=== PATIENT | female | born 1990 | race Caucasian/White ===

== ENCOUNTER 2017-11-10 07:31 | Inpatient (IN) | payer BC ==
[2017-11-10] VITALS (40 sets, daily range): BP systolic 112–161; BP diastolic 53–90; PULSE 55–108; TEMP 97.5–99
[~2017-11-10] VITALS: Ht 175.3 cm; Wt 91.8 kg
[2017-11-10] MEDS ORDERED: PRENATAL (08:03)
[2017-11-10 08:53] LABS: BASO % 0.2 % (0.0-2.0); EOS % 0.3 % (0-4.0); GRAN # 10.2 (1.4-6.5); LYMPH # 1.5 (1.2-3.4); LYMPH % 11.4 % (20.0-51.0); MEAN CELL VOLUME 86 fl (80.0-100.0); MEAN CORPUSCULAR HGB CONC 33 g/dl (33.0-37.0); MONO % 7.6 % (1.7-9.3); PLATELET COUNT 267 K/mm3 (130-400); RED BLOOD COUNT 4.01 M/mm3 (4.10-5.30); REDCELL DISTRIBUTION WIDTH-CV 12.6 % (11.5-14.5)
[2017-11-10 08:55] LABS: HEMATOCRIT 34.4 % (37.0-47.0); HEMOGLOBIN 11.5 g/dl (12.5-16.0); MEAN CORPUSCULAR HEMOGLOBIN 29 pg (27.0-31.0)
[2017-11-10 09:00] LABS: ALBUMIN 3.8 gm/dL (3.5-5.0); BILIRUBIN,TOTAL 0.2 mg/dL (0.0-1.0); CALCIUM 9.3 mg/dL (8.4-10.2); CREATININE, serum 0.62 mg/dL (0.52-1.25); TOTAL PROTEIN 6.9 gm/dL (6.4-8.2)
[2017-11-11] VITALS (7 sets, daily range): BP systolic 112–133; BP diastolic 56–84; PULSE 72–86; TEMP 97.8–98.2
[2017-11-11 06:21] LABS: HEMATOCRIT 27.5 % (37.0-47.0); HEMOGLOBIN 9.1 g/dl (12.5-16.0)
[2017-11-11] MEDS ORDERED: MOTRIN 800800 MG/TAB PO (12:47)
[2017-11-11] MEDS ORDERED: NEWMANS TOP (12:47)
[2017-11-11] MEDS ORDERED: PERCOCET 325 MG1 TA2 PO (12:47)
[2017-11-12 08:45] VITALS: BP 133/65; PULSE 78; TEMP 98
== END 2017-11-12 16:15 | disposition home or self-care (01) | DRG 775 ==
LOC: EDSTATUS 07:31 → LDRO 07:31 → OB 07:57 → LDR 07:57 → OB 11-11 02:45
PROVIDERS: Obstetrics & Gynecology
PROC: 10E0XZZ Delivery of Products of Conception, External Approach (ICD-10-PCS; principal; 2017-11-10)
PROC: 0KQM0ZZ Repair Perineum Muscle, Open Approach (ICD-10-PCS; 2017-11-10)
PROC: 10E0XZZ Delivery of Products of Conception, External Approach (ICD-10-PCS; 2017-11-10)
DX: O13.4 Gestational [pregnancy-induced] hypertension without significant proteinuria, complicating childbirth (principal); O99.824 Streptococcus B carrier state complicating childbirth; O70.1 Second degree perineal laceration during delivery; Z3A.39 39 weeks gestation of pregnancy; Z37.0 Single live birth
CPT/HCPCS: J2400; J2540; J2590; J2795; J7120

== ENCOUNTER 2019-06-04 07:01 | Inpatient (IN) | payer OTHER ==
[2019-06-04] VITALS (24 sets, daily range): BP systolic 114–152; BP diastolic 58–97; PULSE 59–104; TEMP 97.6–98.5
[~2019-06-04] VITALS: Ht 175.3 cm; Wt 94.5 kg
[~2019-06-04 07:01] MED LIST: MOTRIN 800800 MG/TAB PO; NEWMANS TOP; PERCOCET 325 MG1 TA2 PO; PRENATAL
--- NOTE | 2019-06-04 07:30 | NUR ---
0705- Pt arrives on unit ambulatory for scheduled induction. Pt and oriented to room. Pt into bathroom, changes into gown, voids. 0715- Pt into bed, EFM and TOCO on and tracing. Assessment completed. IV started, ABX infusing. Consents explained and signed. Call light within reach.
--- NOTE | 2019-06-04 08:14 | NUR ---
0747- Pt sitting up in bed to sign consent forms. FHR not tracing well due to maternal position. 0806- Couple updated that Dr Nguyen planning on evaluating in about 30mins. Pt desires to move around room till then. EFM adjusted and tracing well. Informed Pt, need for reactive strip prior to coming off monitor. Pt verbalizes understanding. 0814- Category I FHR tracing noted. EFM and TOCO off. Pt up to bathroom.
[2019-06-04 08:22] LABS: BASO % 0.2 % (0.0-2.0); EOS % 0.4 % (0-4.0); GRAN # 6.9 (1.4-6.5); GRAN % 72.6 % (42.2-75.2); HEMOGLOBIN 11.6 g/dl (12.5-16.0); LYMPH # 1.7 (1.2-3.4); LYMPH % 18.2 % (20.0-51.0); MEAN CELL VOLUME 84 fl (80.0-100.0); MEAN CORPUSCULAR HEMOGLOBIN 28 pg (27.0-31.0); MEAN CORPUSCULAR HGB CONC 33 g/dl (33.0-37.0); MONO # 0.8 (0.1-0.6); MONO % 8.2 % (1.7-9.3); PLATELET COUNT 256 K/mm3 (130-400); RED BLOOD COUNT 4.11 M/mm3 (4.10-5.30); REDCELL DISTRIBUTION WIDTH-CV 12.8 % (11.5-14.5)
[2019-06-04 08:24] LABS: HEMATOCRIT 34.7 % (37.0-47.0)
--- NOTE | 2019-06-04 09:18 | NUR ---
0851- Dr Nguyen at bedside, discusses plan of care for induction. Questions answered. 0855- SVE /-2, AROM, clear fluid, odorless. okay with not starting Pitocin now, will continue to evaluate. Pt aggrees and happy with plan. Pt updated with need to evaluate FHR now that water broke. Once Category I tracing established, Pt would like intermittent monitoring in order to move around room, use birthing ball, ect. 0818- Category I tracing noted. VSS. EFM and TOCO off, Pt up to void. Pt onto birthing ball. Discuss need to evaluate FHR every 40mins for 20mins, Pt verbalizes understanding.
--- NOTE | 2019-06-04 10:20 | NUR ---
0958- Pt into bed, EFM and TOCO on and tracing. Pt states feeling cramping but tolerating well. 1020- Category I FHR tracing noted. EFM and TOCO off. Pt desires to ambulate.
--- NOTE | 2019-06-04 11:21 | NUR ---
1028- Pt on BB, EFM and TOCO on, tracing intermittently, adjusted by this RN. Pt states contractions are getting stronger. 1121- EFM and TOCO off. Pt up to ambulate in hallway.
--- NOTE | 2019-06-04 12:00 | NUR ---
1142- Pt into bed, EFM and TOCO on and tracing. IVF and Pen G infusing per order. Discussed contraction pattern and options with couple. Pt wishes to continue with watching for now.
--- NOTE | 2019-06-04 13:00 | NUR ---
1230- SVE by this RN per Pt request, 2. Discussed Pitocin and precautions associated with it. Questions answered. Pt ready to start Pitocin.
--- NOTE | 2019-06-04 15:45 | NUR ---
1537- FHR intermittent, RN at bedside. Pt kneeling on bed, leaning over head-of-bed which was in semi-fowlers position. Pt breathing well and coping with contractions but very uncomfortable. This RN remains at bedside attempting to trace FH tones.
--- NOTE | 2019-06-04 16:10 | NUR ---
1600- Pt very uncomfortable, frequent position changes between contractions. Pt coping well with UCs. This RN remains at bedside, coaching with breathing and relaxation. 1604- SVE 9/100/+1. Pt feeling pushy. This RN calls charge nurse for assist. 1606- Dr Nguyen at bedside. Erickson, nursery RN at bedside. Pt and room prepped for delivery. Pt encouraged to push with UCs. 1611- of viable male infant. Baby to mother's abd where dried and stimulated, tended to by nursery RN. Pitocin off. 1616- Spontaneous delivery of placenta. Pitocin on at 333ml/hr. Bilateral labia lacerations repaired by , Lidocaine used. Pt tolerated well. Pericare completed. Ice pack to perineum. Pt assisted to high-fowlers, baby [id number] with mom.
--- NOTE | 2019-06-04 18:00 | NUR ---
1800- Pt ambulates to bathroom independently with RN stand-by assist. Voids 100mls. Pericare completed and explained. Peripad and underwear on. Clean gown on. Pt ambulates to PP room well. Oriented to room. Call light within reach. taken to nursery for bath per parents request.
[2019-06-05 00:30] VITALS: BP 118/66; PULSE 75; TEMP 98.5
[2019-06-05 04:30] VITALS: BP 130/78; PULSE 73; TEMP 97.8
[2019-06-05 08:30] VITALS: BP 120/66; PULSE 76; TEMP 97.8
--- NOTE | 2019-06-05 11:24 | NUR ---
Initial visit; Mom thanked for offering congratulations for the of her son. thanked Mom for choosing [facility].
[2019-06-05] MEDS ORDERED: IBU600 MG PO (14:07)
[2019-06-05] MEDS ORDERED: PERCOCET 325 MG1 TA2 PO (14:07)
[2019-06-05 15:37] VITALS: BP 112/68; PULSE 76; TEMP 97.8
== END 2019-06-05 17:23 | disposition home or self-care (01) | DRG 807 ==
LOC: LDR 07:01 → OB 07:01 → LDR 14:41 → OB 06-05 05:36
PROVIDERS: ADMIT Obstetrics & Gynecology
PROC: 10907ZC Drainage of Amniotic Fluid, Therapeutic from Products of Conception, Via Natural or Artificial Opening (ICD-10-PCS; principal; 2019-06-04)
PROC: 10E0XZZ Delivery of Products of Conception, External Approach (ICD-10-PCS; 2019-06-04)
PROC: 0HQ9XZZ Repair Perineum Skin, External Approach (ICD-10-PCS; 2019-06-04)
DX: O48.0 Post-term pregnancy (principal); Z37.0 Single live birth; Z3A.40 40 weeks gestation of pregnancy; O99.824 Streptococcus B carrier state complicating childbirth; O70.0 First degree perineal laceration during delivery
CPT/HCPCS: J2540; J2590; J7120

== ENCOUNTER → 2020-01-28 | Outpatient (CLI) | payer OTHER ==
[~2020-01-28] MED LIST changes: +IBU600 MG PO
== END ==
LOC: COL.RAD 13:30
DX: G43.909 Migraine, unspecified, not intractable, without status migrainosus (principal)

== ENCOUNTER 2022-04-19 05:00 | Inpatient (IN) | payer BC ==
[~2022-04-19] VITALS: Ht 175.3 cm; Wt 95.5 kg
[2022-04-19] VITALS (13 sets, daily range): BP systolic 115–141; BP diastolic 61–93; PULSE 56–78; TEMP 98–98.1
--- NOTE | 2022-04-19 05:30 | NUR ---
PATIENT PRESENTS TO OBT FOR LABOR ASSESSMENT. VSS. FHT REACTIVE AND REASSURING WITH REGULAR PAINFUL CONTRACTIONS THAT PALPATE FIRM. PATIENT DENIES LOF, DFM, AND VB. SVE PERFORMED; . DR. AC NOTIFIED AND ORDERS RECEIVED TO ADMIT PATIENT. CONSENT FORMS SIGNED AND MEDICAL HX OBTAINED. ASSESSMENT COMPLETED AND WNL. IV PLACED, LAB WORK SENT, AND IVF INITIATED. PCN STARTED FOR GBS PROPHALXIS. LABOR PLAN DISCUSSED WITH PATIENT AND VERBALIZED UNDERSTOOD. PATIENT AND SPOUSE ORIENTED TO ROOM AND UNIT. WILL CONTINUE TO MONITOR AND UPDATE PROVIDER.
[2022-04-19 06:24] LABS: BASO % 0.2 % (0.0-2.0); EOS # 0.1 K/mm3 (0.0-0.7); EOS % 0.5 % (0.0-4.0); GRAN # 8.2 K/mm3 (1.4-6.5); GRAN % 74.5 % (42.2-75.2); HEMOGLOBIN 11.1 g/dl (12.5-16.0); LYMPH # 1.9 K/mm3 (1.2-3.4); LYMPH % 17.3 % (20.0-51.0); MEAN CELL VOLUME 82 fl (80.0-100.0); MEAN CORPUSCULAR HEMOGLOBIN 28 pg (27-31); MEAN CORPUSCULAR HGB CONC 34 g/dl (33.0-37.0); MEAN PLATELET VOLUME 10.3 fl (7.4-10.4); MONO # 0.8 K/mm3 (0.1-0.6); PLATELET COUNT 235 K/mm3 (130-400); RED BLOOD COUNT 3.99 M/mm3 (4.10-5.30); REDCELL DISTRIBUTION WIDTH-CV 13.2 % (11.5-14.5)
[2022-04-19 06:26] LABS: HEMATOCRIT 32.8 % (37.0-47.0)
--- NOTE | 2022-04-19 06:30 | NUR ---
0615- This RN assumes care of Pt. Pt kneeling on bed, head of bed in high-fowlers, and Pt leaning over head of bed. Very uncomfortable with contractions but coping well, using comb in palm for distractions. 0625- SVE, 8cm and intact. EFM and TOCO off, Pt up to void. Pt standing at bedside with then transitions back to kneeling in bed.
[2022-04-19 06:37] LABS: ALBUMIN 3.1 gm/dL (3.5-5.0); BILIRUBIN,TOTAL 0.3 mg/dL (0.2-1.2); CREATININE, serum 0.64 mg/dL (0.57-1.11); POTASSIUM 3.5 mmol/L (3.5-4.5); TOTAL PROTEIN 6.6 gm/dL (6.2-8.1)
--- NOTE | 2022-04-19 07:01 | NUR ---
0648- Pt requesting different position, Pt assited to LL with RLS. Pt continues to cope well with UCs. 0652- Dr Lovell at bedside. SVE 9-10/100, AROM per Pt request, clear, odorless fluid noted. Pt and room prepped for delivery. Trice, nursery RN at bedside. 0656- Dr Le at bedside, takes over for Dr Lovell. 0700- Pt pushes with UC. 0701- of viable male infant. Placed on mother's abd, tended to by nursery staff, delayed cord clamping for approx 60 secs. Cord clamped and cut, infant placed skin-2-skin with mother. Cord blood obtained. 07- Spontaneous delivery of placenta. Pitocin started at 333ml/hr. Fundus massaged to firm by . Perineum intact. Pericare provided, clean chux and ice pack under Pt. Pt repositioned per her comfort. remains with mother. infant placed skin
[2022-04-20 06:34] LABS: HEMOGLOBIN 9.7 g/dl (12.5-16.0)
--- NOTE | 2022-04-20 07:00 | NUR ---
Rests in bed holding baby. Denies any pain or discomfort at this time. Baby to nurser for 24 hour labs.
[2022-04-20 09:23] VITALS: BP 128/76; PULSE 85; TEMP 98.9
[2022-04-20] MEDS ORDERED: IBU600 MG PO (09:38)
--- NOTE | 2022-04-20 09:45 | NUR ---
Initial visit; Family thanked Business Line Controller for offering congratulations and God's blessings for the of their son. Business Line Controller thanked family for choosing [facility].
[2022-04-20 16:49] VITALS: BP 129/72; PULSE 60; TEMP 98.9
[2022-04-20 19:45] VITALS: BP 129/87; PULSE 70; TEMP 36.9
[2022-04-21 07:15] VITALS: BP 138/84; PULSE 63; TEMP 98.2
--- NOTE | 2022-04-21 10:00 | NUR ---
DISCHARGE TEACHING COMPLETED. EDUCATED ON APPOINTMENT AND PRESCRIPTIONS. QUESTIONS INVITED AND ANSWERED.
== END 2022-04-21 10:05 | disposition home or self-care (01) | DRG 807 ==
LOC: LDRO 05:00 → LDR 05:27 → OB 05:27
PROVIDERS: ADMIT Obstetrics & Gynecology
PROC: 10E0XZZ Delivery of Products of Conception, External Approach (ICD-10-PCS; principal; 2022-04-19)
PROC: 10907ZC Drainage of Amniotic Fluid, Therapeutic from Products of Conception, Via Natural or Artificial Opening (ICD-10-PCS; 2022-04-19)
DX: O99.824 Streptococcus B carrier state complicating childbirth (principal); Z37.0 Single live birth; O48.0 Post-term pregnancy; Z3A.40 40 weeks gestation of pregnancy; O13.4 Gestational [pregnancy-induced] hypertension without significant proteinuria, complicating childbirth; O90.81 Anemia of the puerperium; D64.9 Anemia, unspecified; Z23 Encounter for immunization
CPT/HCPCS: J2540; J2590; J7120